=== PATIENT | female | born 1945 ===

== ENCOUNTER 2018-02-25 06:19 | Observation (INO) | payer MEDICARE ==
[2018-02-19 08:36] VITALS: BMI 36.4
--- NOTE | 2018-02-25 07:01 | CP.SDSHP ---
Same Day Surgery H & P - History Proposed Procedure: Repair of partial tears and degenerative left achilles with possibile graft, resection of calcaneus exostosis, PRP grafting Pre-Op Diagnosis: painful partial tear and degnerative of achilles tendon of L and painful intrateninous calcaneus spur - Allergies Allergies: Allergies codeine Allergy (Intermediate, Verified 02/25/18 06:48) SWELLING mouth jaw gets numb - Physical Exam Mental Status: Alert & Oriented x3 - Impression Impression: Pt was seen and examined in SDS. Pt NPO status was confirmed. All pre-op testing and clearance in chart. Pt has exhausted all conservative treatment at this time and is opting for surgical intervention. Pt was explained procedure and post-operative course. All pt's questions were answered to satisfaction. No guarantees were made. Pt understands all risks, benefits and complications of procedure. Pt will follow-up with Dr. Velázquez within 1 week of surgery Short Stay Discharge - Short Stay Discharge Admitting Diagnosis/Reason for Visit: S86.012A/ M77.32/ G89.11/ R60.0/ Disposition: TRANS TO OBS Referrals: Moises Smith MD [Primary Care Provider] - Follow-up: -Patient in good/stable condition -Pt to resume medications per medical reconciliation -Resume diet Please keep dressing clean, dry, & intact to surgical site -Use plastic bag over bandage for showering - Patient instructed to be PWB in cast with surgical shoe, only when needed, with walker -Call clinic if you see signs of infection (redness, swelling, malodor) -Please make an appointment to see Dr. Velázquez in office/clinic within 1 week for post-op check Progress Note/Discharge Note with Instructions: - Patient evaluated bedside in recovery s/p surgical procedure. - After surgical procedure patient in NAD - (+) Void, (+) Appetite - Capillary refill time <3s and NVSI intact. - Patient denies complaints at this time - Post operative instructions and plan of care explained to patient at length. - Pt. acknowledges understanding. - Spoke to PT -Pt unsteady with fatigue with NWB status with walker -Patient has 3 flights of stairs and unsafe for patient - Discussed with Dr. Velázquez. Patient may PWB to the forefoot only as needed, PRN, with walker for stability - Patient will stay overnight to rest, gain strength, and PT will re-evaluate patient in the AM with weight bear status change - Pending physical therapy recommendations
--- NOTE | 2018-02-25 07:01 | CP.PCM.PN ---
Subjective - Date & Time of Evaluation Date of Evaluation: 02/25/18 Time of Evaluation: 07:00 - Subjective Subjective: Podiatry Progress Note- Dr. Velázquez 72 y.o female with PMH of HTN, HLD, DM2, RA, breast cancer, obesity seen in [facility] for periooperative evaluation for painful left partial left achilles tendon and painful calcaneus exostosis. Daughter is seen at bedside with patient during visitation. Patient reports that she has had issues with her left heel and achilles tendon for a long time. About 2 months ago as she was walking, she felt a pull and could no longer step down. She reports the pain today 7/10 and describes the pain as a pulling, achy pain. Worse with walking. She denies nausea, fever, shortness of breath, chest pain or chills. Patient reports nothing to eat or drink last night. PMH: HTN, HLD, DM2, RA, obesity, breast cancer PSH: R mastectomy, gall bladder removal, hysterectomy, right foot surgery ALL: codeine MEDS: see medication list SH: denies smoking, drinking or illicit drug use FH: father- liver cirrhosis, mother-stomach cancer Objective - Constitutional Appears: Well, Non-toxic, No Acute Distress - Extremities Exam Extremities Exam: absent: Calf Tenderness Additional comments: Vasc: DP and PT 2/4 bilaterally, CFT < 3 seconds x 10 digits, temperature gradient WNL, mild nonpitting edema noted to the left ankle Ortho: pain with palpation to the posterior calcaneus, pain with palpation to the achilles tendon to it's insertion, MM is 4/5 to all compartments, with plantarflexion MM slightly more diminished secondary to pain, shorten 5th digit , elevated, Able to slightly plantarflex with compression of the achilles tendon Derm: bony prominence noted to the posterior calcaneus, erythema noted to the posterior heel secondary to irritation, integrity of the achilles tendon compromised Biomechanical exam/Ortho: Antalgic gait to left foot present. Early heel off noted to left ankle. Patient has decreased ankle joint ROM. Ankle joint dorsiflexion b/l < 10 degrees with knee extended, L>R. Ankle joint dorsiflexion >10 degrees with the left knee flexed. Ankle joint dorsiflexion <10 degrees with the right knee flexed. Negative anterior drawer test. Negative talar tilt. STJ ROM is full B/L with 18 degrees inversion and 9 degrees eversion. Neuro: gross protective intact, protective sensation diminished - Neurological Exam Neurological Exam: Alert, Awake, Oriented x3 - Psychiatric Exam Psychiatric exam: Normal Affect, Normal Mood Assessment and Plan - Assessment and Plan (Free Text) Assessment: 72 y.o female with PMH of HTN, HLD, DM2, RA, breast cancer, obesity seen in [facility] for periooperative evaluation for Left Achilles tendon repair, placement of graft, TOPAZ of achilles tendon and resection of intratendinous spur Plan: Pt was seen and examined in SDS Pt NPO status was confirmed All pre-op testing and clearance in chart Pt has exhausted all conservative treatment at this time and is opting for surgical intervention Pt was explained procedure and post-operative course All pt's questions were answered to satisfaction No guarantees were made Pt understands all risks, benefits and complications of procedure Pt will follow-up with Dr. Velázquez within 1 week of surgery
[2018-02-25] MEDS ORDERED: ceFAZolin 2 GM in Sodium Chloride 0.9% 100 ML IVPB ONE ×2 (07:03→22:54)
[2018-02-25] MEDS ORDERED: ceFAZolin IV 2 gm in Dextrose 2 GM/50 ML BAG IVPB ONE (07:34)
[2018-02-25] MEDS ORDERED: Lidocaine 1% Inj (20ml) ONE (07:34)
[2018-02-25] MEDS ORDERED: Bupivacaine 0.5% Inj(30mL) ONE (07:34)
[2018-02-25] MEDS ORDERED: Dexamethasone 4 mg/1 ml ONE (07:34)
[2018-02-25] MEDS ORDERED: Propofol 10 mg/ml Inj (20 ML) ONE (07:42)
[2018-02-25] MEDS ORDERED: Midazolam 2 MG/2 ML VIAL ONE (07:43)
[2018-02-25] MEDS ORDERED: Lidocaine 4% (Laryng-O-Jet) Kit MM ONE (07:43)
[2018-02-25] MEDS ORDERED: Rocuronium 10 mg/ml (5 ml) ONE (07:43)
[2018-02-25] MEDS ORDERED: Bupivacaine HCl 0.5% PF (10 ml) Inj ONE (07:48)
[2018-02-25] MEDS ORDERED: Ropivacaine 0.5% 30ML IV ONE (07:49)
[2018-02-25] MEDS ORDERED: Lactated Ringer's 1,000 ML IV ONE ×2 (09:15→10:25)
[2018-02-25] MEDS ORDERED: Succinylcholine 200 mg/10 ml Inj IV ONE (10:04)
[2018-02-25] MEDS ORDERED: Bupivacaine 0.5% 50 ML IJ ONE (10:25)
--- NOTE | 2018-02-25 10:39 | PCM.ANESB2 ---
Popliteal Nerve Block - Popliteal Nerve Block Date of Procedure: 02/25/18 Anesthesiologist: Bhavik Pre-Procedure Diagnosis: Left Achilles pain Post-Procedure Diagnosis: Same Procedure Performed: Popliteal Nerve Block Left - Procedure Popliteal Nerve Block: This procedure was explained to the patient that it is for post-operative pain management. Consent was obtained after a thorough discussion with the patient regarding the benefits and possible complications of local anesthetic block of the sciatic nerve at the popliteal level. The patient was brought to the operating room and standard monitors are applied. Time-out was held with the circulating nurse to confirm the correct surgery and the appropriate block. After applying oxygen by nasal cannula and administering IV Sedation, patient's operative leg was gently raised and supported and the groove in between the biceps femoris and vastus lateralis muscles was carefully palpated. The skin approximately 8cm above the popliteal crease was then marked. The ultrasound transducer was then applied to the posterior thigh approximately 8cm above the popliteal crease in the transverse plane and the sciatic nerve before its division was visualized lateral to the popliteal artery and in between the bicep femoris and semimembranosus/semitendinosus muscles. After identification, the lateral portion of the thigh was prepped with Betadine solution three times and Lidocaine 1% was injected subcutaneously for topical anesthesia. At this point, a # 21 gauge Stimuplex insulated 4 inch needle was inserted into pre-marked area and advanced in a perpendicular direction. The needle was inserted above the ultrasound transducer in-plane towards the sciatic nerve in a [id number] direction. Needle advancement was performed carefully under direct ultrasound visualization. Nerve stimulator was used and dorsiflexion of the __left___ foot was elicited at a current of ___0.4__ MA. After repeated negative aspiration, __10___cc of __.5___ % ___marcaine was injected and this was flowed with ___20___ cc of ___.5___% ____ropivacaine __. Under ultrasound guidance the local anesthetics were observed surrounding sciatic nerve . The needle was removed intact and sterile dressing was applied. The patient tolerated the popliteal nerve block well with stable vital signs and was subsequently prepared for the surgery.
--- NOTE | 2018-02-25 10:39 | PCM.SURG1 ---
Surgeon's Initial Post Op Note - Surgeon's Notes Surgeon: Dr. Velázquez Energy Analyst: Dr. Howard, Dr. Guzman, Dr. Talavera Type of Anesthesia: General LMA Anesthesia Administered By: Dr. Solorzano Pre-Operative Diagnosis: Left foot Achilles tendon tear, Left achilles intratendinous spur Operative Findings: Suturetak, 2-0, 3-0, 4-0 Vicryl, 4-0 Monocryl, Arthroflex graft Post-Operative Diagnosis: same Operation Performed: Left Achilles tendon repair, resection of intratendinous spur Specimen/Specimens Removed: Achilles tendinosis Estimated Blood Loss: EBL {In ML}: 2 Blood Products Given: N/A Drains Used: No Drains Post-Op Condition: Good Date of Surgery/Procedure: 02/25/18 Time of Surgery/Procedure: 08:50
[2018-02-25] MEDS ORDERED: Oxycodone/Acetaminophen 5/325 mg Tab PO PRN (10:55)
[2018-02-25] MEDS ORDERED: Acetaminophen-Codeine 300/30 mg Tab PO PRN (10:55)
[2018-02-25 20:40] VITALS: RESP 20
--- NOTE | 2018-02-25 21:01 | CP.PCM.HP ---
History of Present Illness - History of Present Illness History of Present Illness: 72 year old female with PMH of HTN, DM, Breast CA, obesity, s/p repair of partial tear of left achilles tendon, painful calcaneus exostosis. Patient feels well postoperatively. Requesting some pain medication now for left foot pain that is mild. She is being admitted for observation due to difficulty ambulating s/p surgery. She lives in 3rd floor walkup. Denies recent illness, headache, dizziness, chest pain, nausea, vomiting, abdominal pain, leg edema. PMD: Dr. Fouzia Smith PMH: HTN, DM2, obesity, breast cancer PSH: R mastectomy, cholecystectomy, hysterectomy, right foot surgery, now left foot surgery Allergies: codeine Medications: as per med rec SH: denies smoking, drinking or illicit drug use FH: father- liver cirrhosis, mother-stomach cancer Present on Admission - Present on Admission Any Indicators Present on Admission: No Past Patient History - Past Medical History & Family History Past Medical History?: Yes - Past Social History Smoking Status: Never Smoked - CARDIAC Hx Cardiac Disorders: Yes Hx Hypertension: Yes - PULMONARY Hx Respiratory Disorders: Yes Hx Asthma: Yes - NEUROLOGICAL Hx Neurological Disorder: No - HEENT Hx HEENT Problems: No - RENAL Hx Chronic Kidney Disease: No - ENDOCRINE/METABOLIC Hx Endocrine Disorders: No - HEMATOLOGICAL/ONCOLOGICAL Hx Blood Disorders: No - INTEGUMENTARY Hx Dermatological Problems: No - MUSCULOSKELETAL/RHEUMATOLOGICAL Hx Musculoskeletal Disorders: No - GASTROINTESTINAL Hx Gastrointestinal Disorders: No - GENITOURINARY/GYNECOLOGICAL Hx Genitourinary Disorders: No - PSYCHIATRIC Hx Psychophysiologic Disorder: No - SURGICAL HISTORY Hx Surgeries: Yes Hx Breast Biopsy: Yes (right breast) Hx Cataract Extraction: Yes Hx Eye Surgery: Yes Hx Mastectomy: Yes (right) - ANESTHESIA Hx Anesthesia: Yes Hx Anesthesia Reactions: No Hx Malignant Hyperthermia: No Has any member of the family had a problem w/ anesthesia?: No Meds Allergies/Adverse Reactions: Allergies Allergy/AdvReac Type Severity Reaction Status Date / Time codeine Allergy Intermediate SWELLING Verified 02/25/18 06:48 Physical Exam - Constitutional Appears: Well, Non-toxic, No Acute Distress - Head Exam Head Exam: ATRAUMATIC, NORMAL INSPECTION, NORMOCEPHALIC - Eye Exam Eye Exam: EOMI, Normal appearance, PERRL - ENT Exam ENT Exam: Mucous Membranes Moist - Neck Exam Neck exam: Positive for: Normal Inspection - Respiratory Exam Respiratory Exam: Clear to Auscultation Bilateral, NORMAL BREATHING PATTERN. absent: Decreased Breath Sounds, Wheezes - Cardiovascular Exam Cardiovascular Exam: REGULAR RHYTHM, +S1, +S2 - GI/Abdominal Exam GI & Abdominal Exam: Normal Bowel Sounds, Soft. absent: Diminished Bowel Sounds , Guarding, Hernia, Tenderness - Rectal Exam Rectal Exam: Deferred - Extremities Exam Additional comments: left lower leg: wrapped in NISHANT bandage with boot, elevated - Neurological Exam Neurological exam: Alert, CN II-XII Intact, Oriented x3 Additional comments: gait deferred - Psychiatric Exam Psychiatric exam: Normal Affect, Normal Mood - Skin Skin Exam: Dry, Intact, Normal Color, Warm Results - Vital Signs Recent Vital Signs: Last Vital Signs Temp 98 F 02/25/18 20:39 Pulse 69 02/25/18 20:39 Resp 20 02/25/18 20:39 BP 163/80 H 02/25/18 20:39 Pulse Ox 95 02/25/18 20:39 - Labs Labs: Laboratory Results - last 24 hr 02/25/18 02/25/18 07:29 10:39 POC Glucose (mg/dL) 135 H 110 Assessment & Plan (1) S/P Achilles tendon repair Assessment and Plan: 72 year old female with mutliple comorbidites admitted for observation s/p achilles tendon repair due to difficulty ambulating post procedure. -Pain control as ordered -PT to reevaluate patient in the morning. -Management as per podiatry. Status: Acute (2) Non-insulin dependent type 2 diabetes mellitus Assessment and Plan: accuchecks reviewed, within acceptable limits resume home medications in the AM Status: Chronic (3) HTN (hypertension) Assessment and Plan: as per patient well controlled -will resume home medications, coreg due Status: Chronic (4) DVT prophylaxis Assessment and Plan: lovenox in AM Status: Acute (5) Morbid obesity Assessment and Plan: outpatient mangement Status: Chronic
--- NOTE | 2018-02-25 21:04 | CARD ---
APPROVED REPORT EKG Measurement Heart [id number] <Conclusion> Normal sinus rhythm Normal ECG
[2018-02-25] MEDS: Oxycodone/Acetaminophen 5/325 mg Tab PO PRN (21:14)
--- NOTE | 2018-02-25 22:39 | PCM.OP ---
Operative Report - Operative Report Date of Surgery/Procedure: 02/25/18 Time of Surgery/Procedure: 08:00 Surgeon: Dr. Velázquez Computer Animator: Dr. Howard, Dr. Guzman, Dr. Talavera Anesthesia/Sedation: Dr. Cornejo Pre-Operative Diagnosis: 1)Left ankle partial tear of Achilles Tendon. 2)Left foot Intratendinous bone spur Post-Operative Diagnosis: same Indication for Surgery: Indications: The patient is a 72 year-old female with the above diagnoses. The patient has exhausted conservative treatment at this time and now requests surgical intervention. The patient signed the consent after careful explanation of risks, benefits, complication and alternatives for surgical procedure. No guarantees were given nor implied. NPO status was confirmed prior to taking pt to the OR. Operative Findings: Preparation: The patient was brought to the operating room and placed on the operating room table in prone position. A well-padded pneumatic thigh tourniquet was placed to the patient's LEFT thigh. After induction of general anesthesia and left lower extremity popliteal block, the LEFT lower extremity was then prepped and draped in usual sterile manner. Esmarch was utilized to exsanguinate the patient's LEFT foot and ankle. Pneumatic thigh tourniquet was then inflated to 350 mmHg and procedure began. Procedure/Operation Description: Procedure: Two procedures. 1)LEFT Achilles tendon repair. Attention was directed to the posterior aspect of patients LEFT ankle where approximatedly 7 cm linear longitudinal incision was made overlying the Achilles tendon course using #15 blade. Sharp and blunt dissection was carried down to the level of paratenon of Achilles tendon, taking care to retract all vital neurovascular structures. All bleeders were cauterized and ligated as necessary. Once paratenon was exposed, #15 blade was utilized to make a linear longitudinal cut through the thin paratenon layer staying central to the Achilles tendon. Then the paratenon was reflected medially and laterally to expose the Achilles tendon to operative site. At this time, partial rupture of the Achilles tendon was visualized with unhealthy, thickened portion of the Achilles tendon approximately 4cm proximal to the insertion into the calcaneus. Next, utilizing #15 blade and forceps, this unhealthy portion of the Achilles tendon measuring 4cm x 0.6cm x 0.6cm was excised and removed from the central body of the Achilles tendon. Repair of this tendon is described following procedure #2. . 2)LEFT foot excision of intratendinous spur. Next, Utilizing #15 blade, linear longitudinal incision was made into the very distal aspect of Achilles tendon insertion staying central over the tendon. The incision was carried down to the bone of the calcaneus. Insertion of the Achilles tendon into the calcaneus was partially detached medially and laterally thus exposing the posterior aspect of calcaneus into the operative site. Upon dissection of the Achilles tendon insertion, prominent calcaneal bone spur was noted to the posterior aspect of the calcaneus situated within the Achilles tendon at the insertion. Next, utilizing a rongeur, this prominent bone spur was resected and passed from the operative field. Next, utilizing two Arthrex Suturetaks, distal aspect of the Achilles tendon insertion was firmly fixated into the posterior aspect of the calcaneus. Next, the Achilles tendon body was repaired and re-tubularized utilizing size 2-0 Fiberwire in interlocking suture technique and excellent integrity of the repaired Achilles tendon was confirmed by passive dorsiflexion and plantarflexion of the ankle joint. Next, Arthrex ArthroFlex decellularized graft measuring approximately 5cm x 5cm was wrapped around the Achilles tendon and was firmly fixated into the tendon with 2-0 vicryl suture with interlocking technique. Next, utilizing #4-0 Vicryl, the paratenon of Achilles tendon was sutured back together. The surgical site was then flushed with copious amounts of normal sterile saline. The subcutaneous tissue was reapproximated with #4-0 vicry sutures. Subcuticular skin reapproximated with #4-0 Monocryl in running suture technique. The LEFT foot was then dressed with betadine soaked adaptic, and DSD. Posterior splint was applied to LEFT lower extremity. The attending was present during the case. Estimated Blood Loss: < 3mL Complications: None Discharge & Condition: Postoperative Condition: The patient tolerated the anesthesia and procedure well and was escorted to the recovery room with vital signs stable and neurovascular status intact to the LEFT lower extremity. This patient will follow up with Dr. Velázquez
[2018-02-25] MEDS: Lactated Ringer's 1,000 ML IV SCH (23:36)
[2018-02-26] MEDS: Oxycodone/Acetaminophen 5/325 mg Tab PO PRN ×2 (03:54→10:35)
[2018-02-26] MEDS ORDERED: Enoxaparin 30 mg Syringe SC SCH (09:00)
[2018-02-26] MEDS ORDERED: Pravastatin Sodium 20 MG TAB PO SCH (09:00)
[2018-02-26] MEDS ORDERED: PILOCARPINE HCL 5 MG PO SCH (09:00)
[2018-02-26] MEDS ORDERED: MAGNESIUM 30 MG PO SCH (09:00)
[2018-02-26] MEDS: Lactated Ringer's 1,000 ML IV SCH ×2 (10:14→19:04)
[2018-02-26 10:57] LABS: HEMOGLOBIN 10.3 g/dL (12.0-16.0); MEAN CELL VOLUME 80.5 fl (81.0-99.0); MEAN CORPUSCULAR HEMOGLOBIN 25.9 pg (27.0-31.0); MEAN CORPUSCULAR HGB CONC 32.2 g/dL (33.0-37.0); RBC 3.97 Mil/uL (3.80-5.20); RED CELL DISTRIBUTION WIDTH 16.5 % (11.5-14.5); WHITE BLOOD COUNT 9.6 K/uL (4.8-10.8)
[2018-02-26] MEDS ORDERED: Enoxaparin 40 mg Syringe SC SCH (11:15)
[2018-02-26 11:19] LABS: CALCIUM 9.2 mg/dL (8.4-10.2)
--- NOTE | 2018-02-26 12:34 | CP.PCM.PN ---
Subjective - Date & Time of Evaluation Date of Evaluation: 02/26/18 Time of Evaluation: 12:30 - Subjective Subjective: 72 year old female with PMH of HTN, DM, Breast CA, obesity, seen at bedside s/p repair of partial tear of left achilles tendon. Patient is AAO x 3 and NAD, resting comfortably in bed. States that pain is well controlled and that PT came to see her yesterday. Denies any acute overnight events or any new complaints at this time. States that she originally was not open to going to a subacute facility upon discharge because her is sick at home with cancer but now states that she would be open to going for a few days. Denies any recent N/V/F/C/CP/SOB/D/posterior calf pain when squeezed. Objective - Vital Signs/Intake and Output Vital Signs (last 24 hours): Temp Pulse Resp BP Pulse Ox 97.7 F 64 20 123/75 95 02/26/18 03:34 02/26/18 10:19 02/26/18 03:34 02/26/18 10:19 02/26/18 03:34 - Medications Medications: Current Medications Acetaminophen/Codeine Phosphate (Tylenol/Codeine 300 Mg/30 Mg) 1 tab PO Q4 PRN PRN Reason: Pain, Mild (1-3) Amlodipine Besylate (Norvasc) 5 mg PO DAILY [facility] Last Admin: 02/26/18 10:18 Dose: 5 mg Aspirin (Ecotrin) 81 mg PO DAILY [facility] Last Admin: 02/26/18 10:12 Dose: 81 mg Carvedilol (Coreg) 6.25 mg PO BID [facility] Last Admin: 02/26/18 10:08 Dose: 6.25 mg Docusate Sodium (Colace) 100 mg PO BID [facility] Enoxaparin Sodium (Lovenox) 40 mg SC DAILY [facility] PRN Reason: Protocol Glipizide (Glucotrol) 10 mg PO DAILY [facility] Last Admin: 02/26/18 10:13 Dose: 10 mg Home Med (Magnesium [Magnesium]) 30 mg PO DAILY [facility] Home Med (Pilocarpine Hcl [Pilocarpine Hcl]) 5 mg PO DAILY [facility] Hydrochlorothiazide (Microzide) 12.5 mg PO DAILY [facility] Last Admin: 02/26/18 10:14 Dose: 12.5 mg Lactated Ringer's (Lactated Ringer's) 1,000 mls @ 100 mls/hr IV .Q10H [facility] Last Admin: 02/26/18 10:14 Dose: Not Given Lisinopril (Zestril) 20 mg PO DAILY [facility] Last Admin: 02/26/18 10:19 Dose: 20 mg Metformin HCl (Glucophage) 850 mg PO BID [facility] Last Admin: 02/26/18 10:13 Dose: 850 mg Oxycodone/Acetaminophen (Percocet 5/325 Mg Tab) 1 tab PO Q4 PRN PRN Reason: Pain, moderate (4-7) Stop: 02/28/18 10:56 Last Admin: 02/26/18 10:35 Dose: 1 tab Oxycodone/Acetaminophen (Percocet 5/325 Mg Tab) 2 tab PO Q4 PRN PRN Reason: Pain, severe (8-10) Stop: 02/28/18 10:56 Pravastatin Sodium (Pravachol) 20 mg PO DAILY [facility] Last Admin: 02/26/18 10:19 Dose: 20 mg Tamoxifen Citrate (Nolvadex) 10 mg PO DAILY [facility] Last Admin: 02/26/18 10:15 Dose: 10 mg - Labs Labs: 02/26/18 10:40 02/26/18 10:40 - Constitutional Appears: Well, Non-toxic, No Acute Distress - Head Exam Head Exam: ATRAUMATIC, NORMOCEPHALIC - Eye Exam Eye Exam: EOMI, PERRL Pupil Exam: PERRL - ENT Exam ENT Exam: Mucous Membranes Moist - Respiratory Exam Respiratory Exam: NORMAL BREATHING PATTERN - GI/Abdominal Exam GI & Abdominal Exam: absent: Distended, Firm, Guarding, Rigid, Tenderness - Rectal Exam Rectal Exam: Deferred - Extremities Exam Additional comments: Patient able to wiggle all toes left foot without pain CFT < 3 seconds to all digits All digits pink and warm to touch - Neurological Exam Neurological Exam: Alert, Awake, Oriented x3 - Psychiatric Exam Psychiatric exam: Normal Affect, Normal Mood - Skin Skin Exam: Intact, Normal Color, Warm Assessment and Plan - Assessment and Plan (Free Text) Assessment: 72 year old female with PMH of HTN, DM, Breast CA, obesity, seen at bedside s/p repair of partial tear of left achilles tendon Plan: S/P Achilles tendon repair - Management per Podiatry - Pain management as ordered - PT for re-evaluation today - DC home vs. to [facility] pending Social work/patient decision Non-insulin dependent type 2 diabetes mellitus - POC glucose 110 - Continue at home meds - Diabetic diet HTN (hypertension) - Chronic - Asymptomatic - BP: 123/75 - Continue meds as ordered DVT prophylaxis - Lovenox 40 mg SC daily Morbid obesity - BMI 36.5 - Outpatient mangement
--- NOTE | 2018-02-26 14:32 | CP.PCM.DIS ---
Provider - Provider Date of Admission: 02/25/18 17:17 Attending physician: Destiny Siu MD Primary care physician: Moises Smith MD Time Spent in preparation of Discharge (in minutes): 45 Diagnosis - Discharge Diagnosis (1) Partial rupture of Achilles tendon Status: Acute Comment: Patient admitted to floors for Observation following repair of a partially torn achilles tendon by Dr. Velázquez on 02/25/18. Pain controlled at this time. Patient hemodynamically stable for [facility] to [facility]. Hospital Course - Lab Results Lab Results: Most Recent Lab Values WBC 9.6 K/uL (4.8-10.8) 02/26/18 10:40 RBC 3.97 Mil/uL (3.80-5.20) 02/26/18 10:40 Hgb 10.3 g/dL (12.0-16.0) L 02/26/18 10:40 Hct 32.0 % (34.0-47.0) L 02/26/18 10:40 MCV 80.5 fl (81.0-99.0) L 02/26/18 10:40 MCH 25.9 pg (27.0-31.0) L 02/26/18 10:40 MCHC 32.2 g/dL (33.0-37.0) L 02/26/18 10:40 RDW 16.5 % (11.5-14.5) H 02/26/18 10:40 Plt Count 361 K/uL (130-400) 02/26/18 10:40 Sodium 142 mmol/l (132-148) 02/26/18 10:40 Potassium 3.8 MMOL/L (3.6-5.0) 02/26/18 10:40 Chloride 103 mmol/L (98-107) 02/26/18 10:40 Carbon Dioxide 24 mmol/L (22-30) 02/26/18 10:40 Anion Gap 19 (10-20) 02/26/18 10:40 BUN 30 mg/dl (7-17) H 02/26/18 10:40 Creatinine 1.3 mg/dl (0.7-1.2) H 02/26/18 10:40 Est GFR ( Amer) 49 02/26/18 10:40 Est GFR (Non-Af Amer) 40 02/26/18 10:40 POC Glucose (mg/dL) 110 mg/dL (65-110) 02/25/18 10:39 Random Glucose 121 mg/dL (65-105) H 02/26/18 10:40 Calcium 9.2 mg/dL (8.4-10.2) 02/26/18 10:40 - Hospital Course Hospital Course: Patient admitted to floors for Observation following repair of a partially torn achilles tendon by Dr. Velázquez on 02/25/18. Patient stable for discharge to [facility]. Patient receieved all antibiotic and pain prescriptions from Dr. Velázquez in his private office prior to surgery. Per patient, all prescriptions have been filled and patient's daughter will be bringing her her medications prior to discharge today. Patient to follow up with Dr. Velázquez next week. Rehab facility has been made aware - Date & Time of H&P Date of H&P: 02/26/18 Time of H&P: 13:36 Discharge Exam - Head Exam Head Exam: ATRAUMATIC, NORMOCEPHALIC - Eye Exam Eye Exam: EOMI, PERRL Pupil Exam: PERRL - ENT Exam ENT Exam: Mucous Membranes Moist - Respiratory Exam Respiratory Exam: NORMAL BREATHING PATTERN - GI/Abdominal Exam GI & Abdominal Exam: absent: Distended, Firm, Guarding, Tenderness - Rectal Exam Rectal Exam: Deferred - Extremities Exam Additional comments: LLE focused exam CFT < 3 seconds to all digits Skin temperature warm Patient able to wiggle all toes without pain - Neurological Exam Neurological exam: Alert, Oriented x3 - Psychiatric Exam Psychiatric exam: Normal Affect, Normal Mood - Skin Skin Exam: Intact, Normal Color, Warm Discharge Plan - Follow Up Plan Condition: GOOD Disposition: REHAB FACILITY/REHAB UNIT Instructions: Achilles Tendon Rupture Referrals: Eric Velázquez MD [Staff Provider] - Moises Smith MD [Primary Care Provider] -
[2018-02-27 11:16] VITALS: BP 98/62; PULSE 60; TEMP 98.2; O2SAT 94
== END 2018-02-26 22:13 ==
LOC: H.OPSURG 06:19 → H.MEDSURG1 17:17
PROVIDERS: ADMIT Family Medicine Geriatric Medicine; ATTEND Family Medicine Geriatric Medicine
DX: S86.012A Strain of left Achilles tendon, initial encounter (principal); X58.XXXA Exposure to other specified factors, initial encounter; Y93.9 Activity, unspecified; Y92.9 Unspecified place or not applicable; M77.32 Calcaneal spur, left foot; E11.9 Type 2 diabetes mellitus without complications; I10 Essential (primary) hypertension; E78.5 Hyperlipidemia, unspecified; E66.01 Morbid (severe) obesity due to excess calories; Z68.36 Body mass index [BMI] 36.0-36.9, adult; Z85.3 Personal history of malignant neoplasm of breast; Z88.6 Allergy status to analgesic agent; J45.909 Unspecified asthma, uncomplicated
CPT/HCPCS: 27652; 28119; 36415; 80048; 82948; 85027; 88307; 93005; 97116; 97162; 97530; C1713; G0378; G8978; G8979; J0330; J0690; J1100; J1650; J2001; J2250; J2405; J2704; J3010; J7030; J7120; Q4125